=== PATIENT | female | born 1955 | race African-American/Black ===

== ENCOUNTER 2016-09-08 11:54 | Emergency (ER) | payer OTHER ==
[~2016-09-08] VITALS: Ht 154.9 cm; Wt 67.6 kg
[~2016-09-08 11:54] MED LIST: AMBIEN10 MG ORAL; BENADRYL25 M3 PO; COLACE100 MG ORAL; CYCLOBENZAPRINE10 MG ORAL; ENEMA READY TO135 ML RC; ENEMA TWIN PAC133 ML RC; HYDROCHLOROTHIA50 MG ORAL; HYDROCODON-ACE1 EA13 ORAL; IBUPROFEN600 MG PO; MIRALAX17 G2 ORAL; MOBIC7.5 MG ORAL; NEURONTIN100 MG ORAL; NORCO 5-325 TA1 EACH ORAL; PREDNISONE20 MG ORAL; SENNA LAXATIVE25 MG PO; ZOFRAN ODT4 MG ORAL; [UNRECOGNIZED DRUG - REMARK]; [UNRECOGNIZED DRUG - REMARK]; [UNRECOGNIZED DRUG - REMARK]; [UNRECOGNIZED DRUG - REMARK]
[2016-09-08 12:21] VITALS: BP 163/92
[2016-09-08] MEDS ORDERED: COLACE100 MG ORAL (12:23)
[2016-09-08] MEDS ORDERED: FLEET ENEMA133 ML RECTAL (12:23)
--- NOTE | 2016-09-09 07:25 | Emergency Room Report ---
History of Present Illness General Chief Complaint: General Complaint Source: Patient Present Illness HPI Patient presents with complaints of constipation she states that she has had this problem on multiple occasions And at times requires prescription medication Denies any vomiting Denies any diarrhea Patient has passing gas appropriately She some very minimal epigastric discomfort denies any other pain Denies any fevers or chills denies any fall or trauma and is requesting assistance with the lack of bowel movement Allergies: Coded Allergies: KETOROLAC (Unverified Allergy, Severe, Shortness of Breath, 09/30/14) itching & sob RANITIDINE (Verified Allergy, Severe, RASH,DYSPNEA, 03/17/09) HYDROMORPHONE (Verified Allergy, Unknown, 08/29/09) MORPHINE (Verified Allergy, Unknown, RASH,DYSPNEA, 03/17/09) PENICILLIN G (Verified Allergy, Unknown, 01/27/09) Patient History Past Medical History: see triage record Pertinent Family History: none Last Menstrual Period: N/A Now: No Reviewed Nursing Documentation: PMH: Agreed, PSxH: Agreed Nursing Documentation-PMH Past Medical History: No History, Except For Hx Hypertension: Yes Hx Asthma: Yes Hx Gastrointestinal Problems: Yes - GERD Hx Cerebrovascular Accident: Yes - 1998 Review of Systems All Other Systems: negative except mentioned in HPI Physical Exam Vital Signs Date Time Temp Pulse Resp B/P Pulse Ox O2 Delivery O2 Flow Rate FiO2 09/08/16 12:06 98.1 84 16 163/92 100 Room Air Sp02 EP Interpretation: reviewed, normal General Appearance: well appearing, no apparent distress Head: normocephalic, atraumatic Eyes: bilateral eye EOMI, bilateral eye PERRL ENT: hearing grossly normal, normal pharynx, TMs + canals normal, uvula midline Neck: full range of motion, supple, no meningismus, no bony tend Respiratory: lungs clear, normal breath sounds, no rhonchi, no respiratory distress, no retraction, no accessory muscle use Cardiovascular #1: normal peripheral pulses, regular rate, rhythm, no edema, no gallop, no JVD, no murmur Gastrointestinal: normal bowel sounds, non tender, soft, no mass, no organomegaly, non-distended, no guarding, no hernia, no pulsatile mass, no rebound Genitourinary: no CVA tenderness Musculoskeletal: normal inspection Neurologic: oriented x3, responsive, import coordinator III-XII nml as tested, motor strength/ tone normal, sensory intact Psychiatric: mood/affect normal Skin: normal color, no rash, warm/dry, palpation normal Lymphatic: normal inspection, no adenopathy Medical Decision Making Diagnostic Impression: Primary Impression: Constipation ER Course Patient does not have any abdominal pain at this time Does not have any other major abdominal surgeries Patient has had previous imaging studies on file here Suspicion for obstruction bowel ischemia is low The patient is requesting intervention with constipation Was provided medications and will have close outpatient followup, Last Vital Signs Date Time Temp Pulse Resp B/P Pulse Ox O2 Delivery O2 Flow Rate FiO2 09/08/16 12:27 98.1 16 163/92 100 Room Air 09/08/16 12:06 84 Status: unchanged Disposition: HOME, SELF-CARE Condition: Stable Scripts Na Phos,M-B/Na Phos,Di-Ba* (FLEET ENEMA*) 133 Ml Enema 133 ML RECTAL DAILY for 3 Days, ML 0 Refills Prov: BUCK ROMO D.O. 09/08/16 Docusate Sodium* (COLACE*) 100 Mg Capsule 100 MG ORAL THREE TIMES A DAY, #30 CAP Prov: BUCK ROMO D.O. 09/08/16 Referrals: [facility],REFERRING (PCP) Patient Instructions: Constipation, Adult Additional Instructions: Patient is provided with the discharge instructions notified to follow up with primary doctor in the next 2-3 days otherwise return to the er with any worsening symptoms. Please note that this report is being documented using [employer] technology. This can lead to erroneous entry secondary to incorrect interpretation by the dictating instrument. BUCK ROMO D.O. Sep 09, 2016 07:25
== END 2016-09-08 12:36 | disposition home or self-care (01) ==
LOC: EMR 12:30
DX: K59.00 Constipation, unspecified (principal); I10 Essential (primary) hypertension; J45.909 Unspecified asthma, uncomplicated; K21.9 Gastro-esophageal reflux disease without esophagitis; Z86.73 Personal history of transient ischemic attack (TIA), and cerebral infarction without residual deficits; Z88.0 Allergy status to penicillin; Z88.8 Allergy status to other drugs, medicaments and biological substances; Z88.6 Allergy status to analgesic agent
CPT/HCPCS: 99284

== ENCOUNTER 2019-08-20 15:41 | Emergency (ER) | payer MEDICARE, OTHER ==
[~2019-08-20] VITALS: Ht 165.1 cm; Wt 77.1 kg
[~2019-08-20 15:41] MED LIST changes: +FLEET ENEMA133 ML RECTAL
[2019-08-20 15:57] VITALS: BP 134/82
--- NOTE | 2019-08-20 16:07 | NUR ---
ED Nurse Note: Pt from home walked in due to episodes of falling. Pt states she fell 3 times within this week due to her legs "giving up". and wasd twitchingn prior to fall. Pt also reports that she passed out due to pain but unable to confirm if she hit her head. Not taking blood thinners but reports bruising on her left toe. AAO x4, ambulate swith her cane.
--- NOTE | 2019-08-20 16:22 | Emergency Room Report ---
History of Present Illness General Chief Complaint: General Complaint Source: Patient Present Illness HPI 63 YO Female w. hx of Sciatica reports exacerbation of her pain x 1 week. Pt. reports falling 3x due to episodes of 8/10 in severity sciatic pain with radiation down hdez posteriorly and uncontrollable twitching of the left leg. Pt. denies hitting her head or LOC. she reports that this most recent fall resulted in pain so severe she "almost passed out". Pt. reports she is also having some radiation of her pain across the lower abdomen. Pt. reports bruising to the left great toe s/p fall. She states she is able to weight bear but has pain with doing so. Pt. reports she is currently ambulatory with a cane. She denies paresthesias. She states previously she was enrolled in pain management and was well controlled. She denies SPENCE, Dizziness, CP, palpitations, SOB, or changes in speech or memory. She denies weakness. She denies N/V, constipation, diarrhea, fevers or chills. She states that she takes ASA daily. She denies night sweats, unintentional weight loss, or hx of cancer. pt. denies recent spinal procedures/injections. She has been taking Flexeril at home with no relief of her symptoms. Allergies: Coded Allergies: RANITIDINE (Verified Allergy, Severe, RASH,DYSPNEA, 03/17/09) CODEINE (Verified Allergy, Unknown, 08/20/19) HYDROMORPHONE (Verified Allergy, Unknown, 08/29/09) MORPHINE (Verified Allergy, Unknown, RASH,DYSPNEA, 03/17/09) PENICILLIN G (Verified Allergy, Unknown, 01/27/09) COVID-19 Screening Contact w/high risk pt: No Recent Travel to affected area: No Experienced COVID-19 symptoms?: No Patient History Past Medical History: see triage record, CVA/TIA Past Surgical History: none Now: No Reviewed Nursing Documentation: PMH: Agreed; PSxH: Agreed Nursing Documentation-PMH Past Medical History: No History, Except For Hx Hypertension: Yes Hx Asthma: Yes Hx Gastrointestinal Problems: Yes - GERD Hx Cerebrovascular Accident: Yes - 2 strokes Review of Systems All Other Systems: negative except mentioned in HPI Physical Exam Vital Signs Date Time Temp Pulse Resp B/P (MAP) Pulse Ox O2 Delivery O2 Flow Rate FiO2 08/20/19 15:57 98.4 96 17 134/82 (78) 96 Sp02 EP Interpretation: reviewed, normal General Appearance: no apparent distress, alert, GCS 15, non-toxic Head: normocephalic, atraumatic Eyes: bilateral eye normal inspection, bilateral eye PERRL ENT: hearing grossly normal, normal voice Neck: full range of motion, no bony tend, other - no spinous process tenderness Respiratory: lungs clear, normal breath sounds, speaking full sentences Cardiovascular #1: regular rate, rhythm, no edema, normal capillary refill Cardiovascular #2: 2+ dorsalis pedis (R), 2+ dorsalis pedis (L) Gastrointestinal: normal bowel sounds, non tender, soft Rectal: deferred Genitourinary: normal inspection, no CVA tenderness Musculoskeletal: normal range of motion, gait/station normal, tender - TTP to the Midline and left paraspinal musculatre of the L-Spine. No midline spinous process ttp, palpable step-offs or obvious deformities of the cervical, or thoracic areas, other - TTP with bruising to the medial aspect of the left great toe. FROM with some pain. mild swelling noted as well. Neurologic: alert, motor strength/tone normal, oriented x3, sensory intact, responsive, speech normal, grossly normal, other - no facial droop. Normal finger to nose. Psychiatric: judgement/insight normal Lymphatic: no adenopathy Medical Decision Making PA Attestation Dr. Pruitt is my supervising Physician whom patient management has been discussed with. Diagnostic Impression: Primary Impression: Sciatica of left side Additional Impression: Toe fracture, left Qualified Codes: S92.415A - Nondisplaced fracture of proximal phalanx of left great toe, initial encounter for closed fracture ER Course 63 YO Female w. hx of Sciatica reports exacerbation of her pain x 1 week. Pt. reports falling 3x due to episodes of 8/10 in severity sciatic pain with radiation down hdez posteriorly and uncontrollable twitching of the left leg. Pt. denies hitting her head or LOC. she reports that this most recent fall resulted in pain so severe she "almost passed out". Pt. reports she is also having some radiation of her pain across the lower abdomen. Pt. reports bruising to the left great toe s/p fall. She states she is able to weight bear but has pain with doing so. Pt. reports she is currently ambulatory with a cane. She denies paresthesias. She states previously she was enrolled in pain management and was well controlled. She denies SPENCE, Dizziness, CP, palpitations, SOB, or changes in speech or memory. She denies weakness. She denies N/V, constipation, diarrhea, fevers or chills. She states that she takes ASA daily. She denies night sweats, unintentional weight loss, or hx of cancer. pt. denies recent spinal procedures/injections. She has been taking Flexeril at home with no relief of her symptoms. Ddx considered but are not limited to Fracture, dislocation, contusion, epidural abscess, Sprain/Strain/Spasm Vital signs: are WNL, pt. is afebrile H&PE are most consistent with sciatica ORDERS: - UA -CT L-spine no contrast -X-ray left foot -BMP -CBC -PT/PTT EKG ED INTERVENTIONS: Robaxin 1g Toradol 15mg IV Ortho Shoe applied to the left foot by nuclear medicine tech. Pt. remains neurovascularly intact. Re-Evaluation: pt. states her pain has subsided with ED interventions DISCHARGE: At this time pt. is stable for d/c to home. Will provide printed patient care instructions, and any necessary prescriptions. Care plan and follow up instructions have been discussed with the patient prior to discharge. Labs Test 08/20/19 17:00 08/20/19 17:26 White Blood Count 4.8 K/UL (4.8-10.8) Red Blood Count 4.06 M/UL (4.20-5.40) Hemoglobin 12.4 G/DL (12.0-16.0) Hematocrit 39.0 % (37.0-47.0) Mean Corpuscular Volume 96 FL (80-99) Mean Corpuscular Hemoglobin 30.7 PG (27.0-31.0) Mean Corpuscular Hemoglobin Concent 31.9 G/DL (32.0-36.0) Red Cell Distribution Width 14.2 % (11.6-14.8) Platelet Count 229 K/UL (150-450) Mean Platelet Volume 5.7 FL (6.5-10.1) Neutrophils (%) (Auto) 53.0 % (45.0-75.0) Lymphocytes (%) (Auto) 36.2 % (20.0-45.0) Monocytes (%) (Auto) 6.3 % (1.0-10.0) Eosinophils (%) (Auto) 3.6 % (0.0-3.0) Basophils (%) (Auto) 1.0 % (0.0-2.0) Prothrombin Time 9.9 SEC (9.30-11.50) Prothromb Time International Ratio 0.9 (0.9-1.1) Activated Partial Thromboplast Time 26 SEC (23-33) Sodium Level 141 MMOL/L (136-145) Potassium Level 4.7 MMOL/L (3.5-5.1) Chloride Level 103 MMOL/L (98-107) Carbon Dioxide Level 33 MMOL/L (21-32) Anion Gap 5 mmol/L (5-15) Blood Urea Nitrogen 10 mg/dL (7-18) Creatinine 0.7 MG/DL (0.55-1.30) Estimat Glomerular Filtration Rate > 60 mL/min (>60) Glucose Level 75 MG/DL (74-106) Calcium Level 10.5 MG/DL (8.5-10.1) Urine Color Pale yellow Urine Appearance Clear Urine pH 7 (4.5-8.0) Urine Specific Clever 1.005 (1.005-1.035) Urine Protein Negative (NEGATIVE) Urine Glucose (UA) Negative (NEGATIVE) Urine Ketones Negative (NEGATIVE) Urine Blood Negative (NEGATIVE) Urine Nitrite Negative (NEGATIVE) Urine Bilirubin Negative (NEGATIVE) Urine Urobilinogen Normal MG/DL (0.0-1.0) Urine Leukocyte Esterase Negative (NEGATIVE) EKG Diagnostic Results EP Interpretation: Dr. Pruitt Rate: normal - 88 Rhythm: NSR ST Segments: no acute changes ASA given to the pt in ED: No PA Scribe Text This Interpretation was scribed by NERY Daugherty. Other X-Ray Diagnostic Results Other X-Ray Diagnostic Results : X-Ray ordered: Left Foot # of Views/Limited Vs Complete: 3 View Indication: Pain EP Interpretation: Yes PA Xray: Interpretation reviewed, by supervising MD, and agrees with findings. Interpretation: no dislocation, no soft tissue swelling, other Impression: Other - Suspected fracture to the distal aspect of the left great toe. Electronically Signed by: Nini Daugherty PA-C CT/MRI/US Diagnostic Results CT/MRI/US Diagnostic Results : Imaging Test Ordered: CT L-Spine No contrast Impression " No acute abnormality. Osteopenia and degenerative spine findings. Mild ASVD. Per official radiology report- Please see report for specific details. Last Vital Signs Date Time Temp Pulse Resp B/P (MAP) Pulse Ox O2 Delivery O2 Flow Rate FiO2 08/20/19 15:57 98.4 96 17 134/82 (99) 96 Status: improved Disposition: HOME, SELF-CARE Condition: Stable Scripts Acetaminophen* (TYLENOL EXTRA STRENGTH*) 500 Mg Tablet 500 MG ORAL Q6H, #30 TAB 0 Refills Prov: Nini Daugherty 08/20/19 Methocarbamol* (ROBAXIN-750*) 750 Mg Tablet 750 MG PO QID, #28 TAB 0 Refills Prov: Nini Daugherty 08/20/19 Patient Instructions: Sciatica, Toe Fracture, [id number] Additional Instructions: Take medications as directed. Do not drink alcohol, drive, or operate heavy machinery while taking Robaxin as this may cause drowsiness. Follow up with a Primary Care Provider in 3-5 days, even if your symptoms have resolved. --Please review list of primary care clinics, if you do not already have a primary care provider Return sooner to ED if new symptoms occur, or current symptoms become worse. - Please note that this Emergency Department Report was dictated using [employer] press operator technology software, occasionally this can lead to erroneous entry secondary to interpretation by the dictation equipment. Nini Daugherty Aug 20, 2019 16:22
[2019-08-20] MEDS ORDERED: Methocarbamol 500mg tab ORAL ONE (16:30)
--- NOTE | 2019-08-20 17:07 | Diagnostic Imaging Report ---
Indication: Back pain Technique: Continuous helical transaxial imaging of the lumbar spine was obtained. Coronal 2-D reformats were also obtained. Study obtained in a Siemens sensation [address] Total Dose length Product (DLP): 502.[address] Dose Index Volume (CTDIvol): 12.5 mGy Comparison: None Findings: There is no evidence of an acute fracture or malalignment. There is mild narrowing of the L3-4, L4-5 intervertebral discs. Minimal anterolisthesis noted at L3-4. Height and configuration of the vertebral bodies and intervertebral discs are within normal limits otherwise. Bones appear osteopenic. The facets are hypertrophic. There is no soft tissue swelling. Impression: No acute injury appreciated. Degenerative changes as described above [facility] has communicated the preliminary results to the Emergency Department. Their findings are largely concordant with this report. The CT scanner at [facility] is accredited by the [employer] and the scans are performed using dose optimization techniques as appropriate to a performed exam including Automatic Exposure control.
[2019-08-20 17:26] LABS: EOSINOPHILS % (AUTO) 3.6 % (0.0-3.0); HEMOGLOBIN 12.4 G/DL (12.0-16.0); LYMPHOCYTES % (AUTO) 36.2 % (20.0-45.0); MEAN CORPUSCULAR VOLUME 96 FL (80-99); MONOCYTES % (AUTO) 6.3 % (1.0-10.0); PLATELET COUNT 229 K/UL (150-450); RED BLOOD COUNT 4.06 M/UL (4.20-5.40); RED CELL DISTRIBUTION WIDTH 14.2 % (11.6-14.8); WHITE BLOOD COUNT 4.8 K/UL (4.8-10.8)
[2019-08-20] MEDS ORDERED: Ketorolac 30mg Inj IV ONE (17:30)
[2019-08-20 17:45] LABS: INR 0.9 (0.9-1.1)
[2019-08-20 17:51] LABS: APPEARANCE,URINE CLEAR; BILIRUBIN, URINE NEGATIVE (NEGATIVE); COLOR,URINE PALE YELLOW; GLUCOSE, URINE (UA) NEGATIVE (NEGATIVE); KETONES,URINE NEGATIVE (NEGATIVE); NITRITE,URINE NEGATIVE (NEGATIVE); PH,URINE 7 (4.5-8.0); PROTEIN,URINE NEGATIVE (NEGATIVE); UROBILINOGEN,URINE NORMAL MG/DL (0.0-1.0)
[2019-08-20 17:53] LABS: ANION GAP 5 mmol/L (5-15); BLOOD UREA NITROGEN 10 mg/dL (7-18); CALCIUM 10.5 MG/DL (8.5-10.1); CARBON DIOXIDE 33 MMOL/L (21-32); CHLORIDE 103 MMOL/L (98-107); CREATININE 0.7 MG/DL (0.55-1.30); POTASSIUM 4.7 MMOL/L (3.5-5.1); SODIUM 141 MMOL/L (136-145)
[2019-08-20 18:40] LABS: LEUKOCYTE ESTERASE ,URINE NEGATIVE (NEGATIVE)
[2019-08-20] MEDS ORDERED: ROBAXIN-750750 MG PO (18:42)
[2019-08-20] MEDS ORDERED: TYLENOL EXTRA500 MG ORAL (18:42)
[2019-08-20 19:00] VITALS: BP 131/80
--- NOTE | 2019-08-20 19:04 | NUR ---
ER DISCHARGE NOTE: Patient is cleared to be discharged per PA, pt is aox4, on room air, with stable vital signs. pt was given dc and prescription instructions, pt was able to verbalize understanding, pt id band removed without complications. pt is able to ambulate with steady gait. pt took all belongings.
--- NOTE | 2019-08-21 11:36 | Diagnostic Imaging Report ---
Indication: Foot pain Comparison: None Findings: 3 views of the left foot were obtained. No acute fractures, malalignment, erosions or periostitis are identified. Soft tissues are unremarkable. Impression: No acute findings
== END 2019-08-20 19:00 | disposition home or self-care (01) ==
LOC: EMR 16:11
DX: M54.32 Sciatica, left side (principal); Z88.6 Allergy status to analgesic agent; Z88.0 Allergy status to penicillin; I10 Essential (primary) hypertension; K21.9 Gastro-esophageal reflux disease without esophagitis; Z86.73 Personal history of transient ischemic attack (TIA), and cerebral infarction without residual deficits; S92.415A Nondisplaced fracture of proximal phalanx of left great toe, initial encounter for closed fracture; W19.XXXA Unspecified fall, initial encounter; Y92.9 Unspecified place or not applicable
CPT/HCPCS: 36415; 72131; 73630; 80048; 81003; 85025; 85610; 85730; 93005; 96374; 99284; J1885